=== PATIENT | male | born 1970 | race Two or more races ===

== ENCOUNTER 2019-01-23 13:40 | Emergency (ER) | payer SELFPAY ==
[~2019-01-23] VITALS: Ht 170.2 cm; Wt 70.8 kg
[2019-01-23 13:53] VITALS: BP 134/81
--- NOTE | 2019-01-23 14:44 | NUR ---
FABIANA BISWAS CALLED FOR CONSULT.
--- NOTE | 2019-01-23 15:00 | NUR ---
EMI received a call from Jam in ED requesting for SW to see pt. due to homelessness. Pt. is a 48 year old male who came to [facility] due to experiencing pain in his left toe. Pt. informed the doctor that he stubbed his left big toe 1 month ago and has been expressing pain when he ambulates. EMI met with the pt. bedside. Pt. is alert and oriented x 4. Pt. was sitting upright on the bed. Pt. appears a bit disheveled. Pt. had his backpack on the floor in front of the bed. Pt. does not provide any eye contact during the assessment. Pt. is cooperative with SW during the assessment. Pt's mood is congruent. Pt. states he is homeless and has been for about a year. Prior to being homeless pt. was residing in [place]. Pt. is originally from [place] and moved to [facility] due to "working for someone." Pt. has no tent or encampment and has been sleeping on the streets. EMI offered pt. emergency senior living placement, however pt. declined. Pt. stated he will accept the homeless resources. Pt. has no source of income and states he recycles or panhandles for money. EMI informed pt. to apply for GR and Food stamps at the [employer]. However, pt. stated " he broke the law" and has to get documentation from court. EMI encouraged pt. to follow through. Pt. states he was jailed in [facility] for possession of methamphetamines in 1986. Pt. is very familiar with homeless services on the street and goes to [place] [facility] the [facility] located at [address], in [facility] Pt. denies drug use at this time and states he drinks 4 malt beers (24 ounces) per day. Pt. appears to minimize his alcohol use and states," I can go without a week." Pt. declined alcohol rehab referrals stating, " I am not interested." Pt. did accept the following homeless resources/referrals: [facility] located at [address] ; [facility] [place], [address] [place] [address] [address] ; [facility] [place], [address] [facility] [address] [facility] [address] ; [facility] Homeless Resource Directory which includes food stamps, transitional housing, showers and hot meals etc; Mental Health clinics such as [facility] ; [facility] ; Health clinics;[facility] and Alcohol treatment centers such as [facility], ; [facility] Substance Abuse Hotline and [facility] . Pt. was offered food and TAP card. Homeless patient waiver form was signed by the pt. and placed in pt's chart. MARIBELL Mchugh was updated with pt's discharge plan.
--- NOTE | 2019-01-23 15:00 | NUR ---
PATIENT SEEN BY ZULAY JUNG, RESOURCES PROVIDED.
--- NOTE | 2019-01-23 15:40 | NUR ---
PATIENT GIVEN A MEAL TRAY AND TOLERATED WELL. WAITING FOR TAP CARD FROM [employer].
--- NOTE | 2019-01-23 16:09 | NUR ---
Patient discharged in stable condition. Written and verbal after care instructions given. Patient verbalizes understanding of instruction. Tap card provided.
== END 2019-01-23 16:10 | disposition home or self-care (01) ==
LOC: ER 13:40
DX: M79.672 Pain in left foot (principal); Z59.0 Homelessness
CPT/HCPCS: 73630-TC